=== PATIENT | female | born 1935 | race Caucasian/White ===

== ENCOUNTER → 2020-07-12 | Outpatient (CLI) | payer MEDICARE, OTHER ==
--- NOTE | 2020-07-12 13:56 | RAD ---
EXAM: Left upper extremity venous Doppler. HISTORY: Left upper extremity pain/swelling. COMPARISON: None. FINDINGS: Grayscale and Doppler analysis of the left upper extremity deep venous system was performed with graded compression and augmentation. The internal jugular, subclavian, axillary, brachial, basilic, cephalic, radial and ulnar veins were assessed. There is no evidence of deep venous thrombosis. IMPRESSION: 1. No evidence of deep venous thrombosis. Electronically signed by: Nelli Mcnamara MD (07/12/2020 1:53 PM) [facility]
== END ==
LOC: US 13:12
PROVIDERS: ATTEND Family Medicine
DX: M25.442 Effusion, left hand (principal); M79.89 Other specified soft tissue disorders
CPT/HCPCS: 93971